=== PATIENT | male | born 1975 | race Caucasian/White ===

== ENCOUNTER 2016-11-01 10:51 | Inpatient (IN) | payer MEDICARE ==
[2016-11-01] VITALS (8 sets, daily range): BP systolic 128–161; BP diastolic 62–78; PULSE 55–75; RESP 16–20; TEMP 98–98.5; O2SAT 97–100
[~2016-11-01] VITALS: Ht 172.7 cm; Wt 68.2 kg
[~2016-11-01 10:51] MED LIST: ACCUTES19 SQ; BAYEKIT; BAYETES; BLOO1KIT65 SQ; GEMF600T PO; LANC1MIS62 SLOW IVP; LEVEMIR SQ; LURA40 PO; METH-737 PO; NORT25CA PO; PEN31MIS2
[2016-11-01] MEDS ORDERED: IOHEXOL 350 MG/ML 10 ML VIAL (for RAD DIAG) IVCONTRAST ONE (10:52)
[2016-11-01] MEDS ORDERED: SODIUM CHLOR 0.9% 1000 ML INJ 1,000 ML IV ONE ×2 (11:01→11:31)
[2016-11-01] MEDS ORDERED: SODIUM CHLORIDE 0.9% FLUSH 10 ML FLUSH IVF PRN (11:15)
[2016-11-01] MEDS ORDERED: SERO100T PO (11:16)
[2016-11-01] MEDS ORDERED: BUSP15TA PO (11:16)
[2016-11-01] MEDS ORDERED: HUMALOG SQ (11:16)
[2016-11-01 11:26] LABS: AUTOMATED NEUTROPHIL # 18.2 TH/MM3 (1.8-7.7); BASOPHIL # 0.1 TH/MM3 (0-0.2); BASOPHIL % 0.3 % (0.0-2.0); EOSINOPHIL % 0.1 % (0.0-4.0); HEMATOCRIT 48.6 % (39.0-51.0); HEMO FLAGS DIFF FINAL; LYMPH % 6.6 % (9.0-44.0); LYMPHOCYTE # 1.3 TH/MM3 (1.0-4.8); MEAN CELL VOLUME 88.2 FL (80.0-100.0); MEAN CORPUSCULAR HEMOGLOBIN 29.1 PG (27.0-34.0); MEAN CORPUSCULAR HGB CONC 33.1 % (32.0-36.0); MONO % 3.4 % (0.0-8.0); NEUT % 89.6 % (16.0-70.0); PLATELET COUNT 283 TH/MM3 (150-450); RED BLOOD COUNT 5.52 MIL/MM3 (4.50-5.90); RED CELL DISTRIBUTION WIDTH 12.6 % (11.6-17.2); WHITE BLOOD COUNT 20.3 TH/MM3 (4.0-11.0)
[2016-11-01 11:43] LABS: ANION GAP 19 MEQ/L (5-15); AST (GOT) 8 U/L (15-37); BICARBONATE 20.7 MEQ/L (21.0-32.0); BLOOD UREA NITROGEN 24 MG/DL (7-18); CHLORIDE 88 MEQ/L (98-107); GLOMERULAR FILTRATION RATE 80 ML/MIN (>89); POTASSIUM 3.4 MEQ/L (3.5-5.1); SODIUM (NA) 128 MEQ/L (136-145)
[2016-11-01 11:44] LABS: BLOOD GAS VENOUS BASE EXCESS -5.4 mmol/L (-2-2); BLOOD GAS VENOUS HCO3 20 mmol/L (22-26); BLOOD GAS VENOUS O2 CONTENT 11.1 Vol % (9.0-17.0); BLOOD GAS VENOUS O2 HGB SAT 49 % (70-76); BLOOD GAS VENOUS PCO2 38 mmHg (44-48); BLOOD GAS VENOUS PO2 29 mmHg (35-40); BLOOD GAS VENOUS pH 7.33 (7.360-7.400); TEMP CORR TO 98.6
[2016-11-01 11:45] LABS: CRITICAL VALUE YES; DRAW SITE RAC; FIO2 21 %; OXYGEN DEVICE RA; STAT YES
[2016-11-01 11:45] LABS: ALT (GPT) 15 U/L (12-78)
[2016-11-01 11:53] LABS: ALKALINE PHOSPHATASE 97 U/L (45-117); BETA-HYDROXYBUTYRATE 8.37 MMOL/L (0.00-0.39); TOTAL BILIRUBIN ADULT 0.9 MG/DL (0.2-1.0)
[2016-11-01 12:04] LABS: BLOOD, URINE NEG (NEG); COMMENT (UR) CULT NOT INDICATED; CULTURE IF INDICATED CULT NOT INDICATED; GLUCOSE,URINE 1000 mg/dL (NEG); KETONE, URINE 150 mg/dL (NEG); NITRITE,URINE NEG (NEG); URINE COLOR LIGHT-YELLOW (YELLW/STRAW)
[2016-11-01] MEDS ORDERED: INSULIN HUMAN REGULAR 1,000 UNITS/10 ML VIAL IV PUSH ONE (12:30)
[2016-11-01] MEDS: POTASSIUM CHLOR 20 MEQ PREMIX 100 ML IV SCH ×2 (12:54→14:59)
--- NOTE | 2016-11-01 13:00 | PD ---
HPI Chief Complaint: Abnormal Results Time Seen by Provider: 10:53 Travel History International Travel<30 days: No Contact w/Intl Traveler<30days: No Traveled to known affect area: No History of Present Illness HPI This is a 41-year-old male who has a history of diabetes who presents to the emergency department with nausea and vomiting that's been going on for 3-4 days , constant, moderate severity, associated with fatigue and lightheadedness. He denies any abdominal pain. He says he hasn't been taking his insulin for 2 weeks. He denies any fevers or chills. He denies any diarrhea. He says he does receive methadone 70 mg daily. PFSH Past Medical History Diabetes: Yes (TYPE 1 ) Patient Takes Glucophage: No Tetanus Vaccination: > 5 Years Social History Alcohol Use: No Tobacco Use: No Substance Use: No Allergies-Medications (Allergen,Severity, Reaction): Coded Allergies: penicillin G (Unverified Allergy, Severe, rash, 09/25/16) Reported Meds & Prescriptions Reported Meds & Active Scripts Active Danielito Contour Blood Glucose Strips (Blood Glucose Test Strips) 1 [place]uni [place]uni 50 Ea .ROUTE DAILY Danielito Contour Blood Gluco W/Device (Device) 1 Kit Kit 1 Kit .ROUTE DAILY Pen Bond 31G X 1/4" Sh 31G X 6 mm 1 Mis Mis 1 Ea .ROUTE DAILY Lancets 33G [place] Chu (Lancets) 1 Mis Mis Ea SLOW IVP DAILY Accu-Chek Leena Plus Test Strips #50 (Device) Strp Ea SQ DAILY Accu-Chek Leena Connect W/Device (Blood Glucose Monitoring Suppl) 1 Kit Kit Ea SQ DAILY Gemfibrozil 600 Mg Tab 600 Mg PO BID Reported Humalog Inj (Insulin Human Lispro) 1,000 Unit/10 Ml Vial 1-9 Units SQ ACHS Max dose at bedtime:( )units; sugars< 70,(0)units; sugars 150-199,(1)unit; sugars 200-249,(3)units; sugars 250-299,(5)units; sugars 300-349,(7)units; sugars more than 349,(9)units. Buspirone (Buspirone HCl) 15 Mg Tab 15 Mg PO BID Seroquel (Quetiapine Fumarate) 100 Mg Tab 100 Mg PO HS Levemir Inj (Insulin Detemir) 1,000 unit/ 10 ML Vial 15 Units SQ HS Do not mix with any other Insulin. Methadose (Methadone HCl) 40 Mg Tab 80 Mg PO DAILY Rx'ed by Methadone clinic Review of Systems Except as stated in HPI: all other systems reviewed are Neg Physical Exam Narrative GENERAL:Well appearing, no acute distress SKIN: Focused skin assessment warm and dry. HEAD: Atraumatic. Normocephalic. EYES: Pupils equal and round. No injection or drainage. ENT: Dry mucous membranes. NECK: Trachea midline. CARDIOVASCULAR: Regular rate and rhythm. No murmur appreciated. RESPIRATORY: Clear to auscultation. Breath sounds equal bilaterally. GASTROINTESTINAL: Abdomen soft, non-tender, nondistended. MUSCULOSKELETAL: No obvious deformities. NEUROLOGICAL: Awake and alert. No obvious cranial nerve deficits. Moving all extremities. PSYCHIATRIC: Appropriate mood and affect; insight and judgment normal. Data Data Last Documented VS Vital Signs Date Time Temp Pulse Resp B/P (MAP) Pulse Ox O2 Delivery O2 Flow Rate FiO2 11/01/16 15:17 58 18 159/67 (97) 98 Room Air 11/01/16 11:07 98.0 Orders Orders Complete Blood Count With Diff (11/01/16 11:01) Comprehensive Metabolic Panel (11/01/16 11:01) Beta Hydroxybutyrate (Acetone) (11/01/16 11:01) Urinalysis - C+S If Indicated (11/01/16 11:01) Blood Gas Venous (Vbg) (11/01/16 11:01) Ecg Monitoring (11/01/16 11:01) Iv Access Insert/Monitor (11/01/16 11:01) Oximetry (11/01/16 11:01) NPO (11/01/16 11:01) Sodium Chlor 0.9% 1000 Ml Inj (Ns 1000 M (11/01/16 11:01) Sodium Chlor 0.9% 1000 Ml Inj (Ns 1000 M (11/01/16 11:31) Ct Abd/Pel W Iv Contrast(Rout) (11/01/16 ) Insulin Human Regular Inj (Novolin R Inj (11/01/16 12:30) Potassium Chlor 20 Meq Premix (Kcl 20 Me (11/01/16 12:30) Lactic Acid Sepsis Protocol (11/01/16 13:00) Chest, Single Ap (11/01/16 ) Methadone Liq (Methadone Liq) (11/01/16 13:30) Iohexol 350 Inj (Omnipaque 350 Inj) (11/01/16 10:52) Blood Culture (11/01/16 15:25) Lipase (11/01/16 11:13) Buspirone (Buspar) (11/01/16 21:00) Insulin Detemir Inj (Levemir Inj) (11/01/16 21:00) Quetiapine (Seroquel) (11/01/16 21:00) (Nf) Methadone Hcl (Methadose) (11/02/16 09:00) Basic Metabolic Panel (Bmp) (11/01/16 20:00) Potassium Chlor 10 Meq Premix (Kcl 10 Me (11/01/16 18:00) Code Status (11/01/16 15:54) Vital Signs (Adult) Q4H (11/01/16 15:54) Activity Oob Ad Sofi (11/01/16 15:54) Bedside Glucose DANNY.CSUGAR (11/01/16 15:54) Handle Bender / Telemetry .CONTINUOUS (11/01/16 15:54) Intake + Output DANNY.QSHIFT (11/01/16 15:54) Notify Dr: Other (11/01/16 15:54) Sodium Chlor 0.9% 1000 Ml Inj (Ns 1000 M (11/01/16 18:00) Sodium Chloride 0.9% Flush (Ns Flush) (11/01/16 16:00) Sodium Chloride 0.9% Flush (Ns Flush) (11/01/16 21:00) Acetaminophen (Tylenol) (11/01/16 16:00) Ondansetron Inj (Zofran Inj) (11/01/16 16:00) Comprehensive Metabolic Panel (11/02/16 06:00) Complete Blood Count With Diff (11/02/16 06:00) Enoxaparin Inj (Lovenox Inj) (11/01/16 18:00) Naloxone Inj (Narcan Inj) (11/01/16 16:00) Docusate Sodium-Senna (Moni-Colace) (11/01/16 21:00) Magnesium Hydroxide Liq (Milk Of Magnesi (11/01/16 16:00) Sennosides (Senokot) (11/01/16 16:00) Bisacodyl Supp (Dulcolax Supp) (11/01/16 16:00) Lactulose Liq (Lactulose Liq) (11/01/16 16:00) Methadone (Dolophine) (11/02/16 14:00) Admit Order (Ed Use Only) (11/01/16 16:12) Labs Laboratory Tests Test 11/01/16 11:13 11/01/16 11:35 11/01/16 11:46 11/01/16 14:59 White Blood Count 20.3 TH/MM3 Red Blood Count 5.52 MIL/MM3 Hemoglobin 16.1 GM/DL Hematocrit 48.6 % Mean Corpuscular Volume 88.2 FL Mean Corpuscular Hemoglobin 29.1 PG Mean Corpuscular Hemoglobin Concent 33.1 % Red Cell Distribution Width 12.6 % Platelet Count 283 TH/MM3 Mean Platelet Volume 8.2 FL Neutrophils (%) (Auto) 89.6 % Lymphocytes (%) (Auto) 6.6 % Monocytes (%) (Auto) 3.4 % Eosinophils (%) (Auto) 0.1 % Basophils (%) (Auto) 0.3 % Neutrophils # (Auto) 18.2 TH/MM3 Lymphocytes # (Auto) 1.3 TH/MM3 Monocytes # (Auto) 0.7 TH/MM3 Eosinophils # (Auto) 0.0 TH/MM3 Basophils # (Auto) 0.1 TH/MM3 CBC Comment DIFF FINAL Differential Comment Blood Urea Nitrogen 24 MG/DL Creatinine 1.03 MG/DL Random Glucose 367 MG/DL Total Protein 7.6 GM/DL Albumin 3.9 GM/DL Calcium Level 9.4 MG/DL Alkaline Phosphatase 97 U/L Aspartate Amino Transf (AST/SGOT) 8 U/L Alanine Aminotransferase (ALT/SGPT) 15 U/L Total Bilirubin 0.9 MG/DL Sodium Level 128 MEQ/L Potassium Level 3.4 MEQ/L Chloride Level 88 MEQ/L Carbon Dioxide Level 20.7 MEQ/L Anion Gap 19 MEQ/L Estimat Glomerular Filtration Rate 80 ML/MIN Lipase 219 U/L B-Hydroxybutyrate 8.37 MMOL/L Blood Gas Puncture Site RAC Blood Gas Patient Temperature 98.6 Venous Blood pH 7.33 Venous Blood Partial Pressure CO2 38 mmHg Venous Blood Partial Pressure O2 29 mmHg Venous Blood HCO3 20 mmol/L Venous Blood Oxygen Saturation 49 % Venous Blood Oxygen Content 11.1 Vol % Venous Blood Base Excess -5.4 mmol/L Oxygen Delivery Device RA Blood Gas Inspired Oxygen 21 % Urine Color LIGHT-YELLOW Urine Turbidity CLEAR Urine pH 5.0 Urine Specific [place] 1.025 Urine Protein 30 mg/dL Urine Glucose (UA) 1000 mg/dL Urine Ketones 150 mg/dL Urine Occult Blood NEG Urine Nitrite NEG Urine Bilirubin NEG Urine Urobilinogen LESS THAN 2.0 MG/DL Urine Leukocyte Esterase NEG Urine WBC LESS THAN 1 /hpf Microscopic Urinalysis Comment CULT NOT INDICATED Urine Opiates Screen NEG Urine Barbiturates Screen NEG Urine Amphetamines Screen NEG Urine Benzodiazepines Screen NEG Urine Cocaine Screen POS Urine Cannabinoids Screen POS Lactic Acid Level 1.6 mmol/L MDM Medical Decision Making Medical Screen Exam Complete: Yes Emergency Medical Condition: Yes Interpretation(s) Leukocytosis 89% neutrophils Hyponatremia Hypokalemia Last 24 hours Impressions Chest X-Ray 11/01/16 0000 Signed Impressions: Service Date/Time: Tuesday, November 01, 2016 13:30 - CONCLUSION: No acute disease. Bryan Lafleur MD Abdomen/Pelvis CT 11/01/16 0000 Signed Impressions: Service Date/Time: Tuesday, November 01, 2016 14:08 - CONCLUSION: No acute intra-abdominal or pelvic process. Onur Patrick MD Differential Diagnosis DKA, gastroenteritis, gastritis, pancreatitis, cholecystitis Narrative Course This is a 41-year-old male who presents to the emergency department with vomiting and abdominal discomfort. He doesn't provide much history on arrival. Labs are obtained which demonstrate a leukocytosis of 20 with 89% neutrophils. Electrolytes demonstrate some moderate dehydration with an anion gap of 19 which I suspect is more in the setting of vomiting than true DKA. CT abdomen and pelvis was unremarkable. 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 My impression is that some of his vomiting may be related to his chronic methadone use. He is also seeing a protection analyst and being evaluated for possible gastroparesis. Given the patient's electrolyte abnormalities I think it's reasonable to observe him overnight for IV hydration and continued antiemetics. Physician Communication Physician Communication Discussed with Dr. Martínez Diagnosis Primary Impression: Vomiting Qualified Codes: R11.2 - Nausea with vomiting, unspecified Admitting Information Admitting Physician Requests: Observation Divina Galvez MD Nov 01, 2016 13:00
[2016-11-01] MEDS ORDERED: METHADONE HCL 10 MG/10 ML ORAL SOLUTION PO ONE (13:30)
--- NOTE | 2016-11-01 14:16 | RADRPT ---
EXAM DATE/TIME: 11/01/2016 13:30 [facility] COMPARISON: No previous studies available for comparison. INDICATIONS : Nausea, vomiting, fever. MEDICAL HISTORY : Diabetes mellitus type II. Smoker. SURGICAL HISTORY : None. ENCOUNTER: Initial ACUITY: 3 days PAIN SCORE: 0/10 LOCATION: Bilateral chest FINDINGS: A single view of the chest demonstrates the lungs to be symmetrically aerated without evidence of mas s, infiltrate or effusion. The cardiomediastinal contours are unremarkable. Osseous structures are intact. CONCLUSION: No acute disease. Bryan Lafleur MD on November 01, 2016 at 14:14 Board Certified Radiologist. This report was verified electronically.
--- NOTE | 2016-11-01 14:53 | RADRPT ---
EXAM DATE/TIME: 11/01/2016 14:08 [facility] COMPARISON: No previous studies available for comparison. INDICATIONS : Nausea and vomiting. IV CONTRAST: 95 cc Omnipaque 350 (iohexol) IV ORAL CONTRAST: No oral contrast ingested. RADIATION DOSE: 9.96 CTDIvol (mGy) MEDICAL HISTORY : Diabetes mellitus type 1. SURGICAL HISTORY : None. ENCOUNTER: Initial ACUITY: 4 - 6 days PAIN SCALE: 0/10 LOCATION: upper quadrant TECHNIQUE: Volumetric scanning of the abdomen and pelvis was performed. Using automated exposure control and ad justment of the mA and/or kV according to patient size, radiation dose was kept as low as reasonably achievable to obtain optimal diagnostic quality images. DICOM format image data is available electro nically for review and comparison. FINDINGS: LOWER LUNGS: The visualized lower lungs are clear. LIVER: Homogeneous density without lesion. There is no dilation of the biliary tree. No calcified gallston es. Gallbladder is normal structure without wall thickening. SPLEEN: Normal size without lesion. PANCREAS: Within normal limits. KIDNEYS: Normal in size and shape. There is no stone or hydronephrosis. 1.7 cm cyst posterior cortex of the r ight kidney mid pole and 1 cm of the lower pole. ADRENAL GLANDS: Within normal limits. VASCULAR: There is no aortic aneurysm. BOWEL/MESENTERY: The stomach, small bowel, and colon demonstrate no acute abnormality. There is no free intraperitone al air or fluid. Appendix visualized and is normal. Retrocardiac hiatal hernia. ABDOMINAL WALL: Within normal limits. RETROPERITONEUM: There is no lymphadenopathy. BLADDER: No wall thickening or mass. REPRODUCTIVE: Within normal limits. INGUINAL: There is no lymphadenopathy or hernia. MUSCULOSKELETAL: Within normal limits for patient age. CONCLUSION: No acute intra-abdominal or pelvic process. Onur Patrick MD on November 01, 2016 at 14:47 Board Certified Radiologist. This report was verified electronically.
[2016-11-01] MEDS ORDERED: BISACODYL 10 MG SUPP RECTAL PRN (16:00)
[2016-11-01] MEDS ORDERED: LACTULOSE SYRUP 20 GM/30 ML CUP PO PRN (16:00)
[2016-11-01] MEDS ORDERED: NALOXONE HCL 0.4 MG/ML AMP IV PUSH PRN (16:00)
[2016-11-01] MEDS ORDERED: MAGNESIUM HYDROXIDE SUSP 30 ML CUP PO PRN (16:00)
[2016-11-01] MEDS ORDERED: SENNOSIDES 8.6 MG TAB PO PRN (16:00)
[2016-11-01] MEDS ORDERED: ACETAMINOPHEN 325 MG TAB PO PRN (16:00)
[2016-11-01] MEDS ORDERED: SODIUM CHLORIDE 0.9% FLUSH 10 ML FLUSH IV FLUSH PRN (16:00)
--- NOTE | 2016-11-01 16:28 | HHI.HP ---
[facility] [place] [facility] [place] [facility] No Primary Care Physician Admission Diagnosis Diagnoses: Chief Complaint: Intractable Nausea and vomit Travel History International Travel<30 Days: No Contact w/Intl Traveler <30 Da: No Traveled to Known Affected Are: No History of Present Illness This is a pleasant 41 y/o male with Diabetes Mellitus Type I, who came to ER with his Mother and two Friends, with Nausea and vomit, not able to keep anything down for the last 3 to 4 days, he is not been compliant with his Medicines, not taking Methadone and his Insulin, associated with fatigue and lightheadedness. He denies any abdominal pain. He says he hasn't been taking his insulin for 2 weeks. He denies any fevers or chills. He denies any diarrhea. He says he does receive methadone 70 mg daily. given Methadone in ER by Doctor Lenny, at this time stable asking for food. as we know he has Chronic Pancreatitis at this time followed by GI specialist and Scheduled for EGD and Colonoscopy as outpatient but is been held due to that the patient is not taking his Insulin and is been Uncontrolled. also he has Hypertriglyceridemia. follow laboratory while he is here. Review of Systems Constitutional: DENIES: Fever, Chills, Change in appetite Endocrine: DENIES: Heat/cold intolerance Eyes: DENIES: Blurred vision, Eye pain Gastrointestinal: COMPLAINS OF: Nausea, Vomiting Except as stated in HPI: all other systems reviewed are Neg Past Family Social History Past Medical History Chronic Pancreatitis DM I Hypertriglyceridemia Severe Non compliance Methadone management by Pain medicine specialist. 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 Bryan Lafleur MD Abdomen/Pelvis CT 11/01/16 0000 Signed Impressions: Service Date/Time: Tuesday, November 01, 2016 14:08 - CONCLUSION: No acute intra-abdominal or pelvic process. Onur Patrick MD Allergies: Coded Allergies: penicillin G (Unverified Allergy, Severe, rash, 09/25/16) Active Ordered Medications Current Medications Medications (Trade) Dose Ordered Sig/Ofe Route Start Time Stop Time Status Last Admin (NS Flush) 2 ml UNSCH PRN IVF 11/01/16 11:15 Potassium Chloride 100 ml @ 50 mls/hr Q2H IV 11/01/16 12:30 11/01/16 16:29 11/01/16 14:59 (Buspar) 15 mg BID PO 11/01/16 21:00 UNV (SEROquel) 100 mg HS PO 11/01/16 21:00 UNV Potassium Chloride 100 ml @ 100 mls/hr ONCE ONCE IV 11/01/16 16:00 11/01/16 16:59 UNV Sodium Chloride 1,000 ml @ 100 mls/hr Q10H IV 11/01/16 15:54 UNV (NS Flush) 2 ml UNSCH PRN IV FLUSH 11/01/16 16:00 UNV (NS Flush) 2 ml BID IV FLUSH 11/01/16 21:00 UNV (Tylenol) 650 mg Q4H PRN PO 11/01/16 16:00 UNV (Zofran Inj) 4 mg Q6H PRN IVP 11/01/16 16:00 UNV (Lovenox Inj) 40 mg Q24H SQ 11/01/16 16:00 UNV (Narcan Inj) 0.4 mg UNSCH PRN IV PUSH 11/01/16 16:00 UNV (Moni-Colace) 1 tab BID PO 11/01/16 21:00 UNV (Milk Of Magnesia Liq) 30 ml Q12H PRN PO 11/01/16 16:00 UNV (Senokot) 17.2 mg Q12H PRN PO 11/01/16 16:00 UNV (Dulcolax Supp) 10 mg DAILY PRN RECTAL 11/01/16 16:00 UNV (Lactulose Liq) 30 ml DAILY PRN PO 11/01/16 16:00 UNV Non-Formulary Medication 70 mg DAILY PO 11/02/16 09:00 UNV Family History Father with Liver Cancer Social History Lives by himself for the last two weeks. Tobacco dependence Physical Exam Vital Signs Vital Signs Date Time Temp Pulse Resp B/P (MAP) Pulse Ox O2 Delivery O2 Flow Rate FiO2 11/01/16 15:17 58 18 159/67 (97) 98 Room Air 11/01/16 12:05 55 18 145/70 (95) 100 Room Air 11/01/16 11:07 18 100 Room Air 11/01/16 11:07 59 18 100 Room Air 11/01/16 11:07 98.0 59 18 161/78 (105) 100 Room Air 11/01/16 11:02 98.0 55 18 161/78 (105) 99 Physical Exam GENERAL:Well appearing, no acute distress SKIN: Focused skin assessment warm and dry. HEAD: Atraumatic. Normocephalic. EYES: Pupils equal and round. No injection or drainage. ENT: Dry mucous membranes. NECK: Trachea midline. CARDIOVASCULAR: Regular rate and rhythm. No murmur appreciated. RESPIRATORY: Clear to auscultation. Breath sounds equal bilaterally. GASTROINTESTINAL: Abdomen soft, non-tender, nondistended. MUSCULOSKELETAL: No obvious deformities. NEUROLOGICAL: Awake and alert. No obvious cranial nerve deficits. Moving all extremities. PSYCHIATRIC: Appropriate mood and affect; insight and judgment normal. Laboratory Laboratory Tests Test 11/01/16 11:13 11/01/16 11:35 11/01/16 11:46 11/01/16 14:59 White Blood Count 20.3 Red Blood Count 5.52 Hemoglobin 16.1 Hematocrit 48.6 Mean Corpuscular Volume 88.2 Mean Corpuscular Hemoglobin 29.1 Mean Corpuscular Hemoglobin Concent 33.1 Red Cell Distribution Width 12.6 Platelet Count 283 Mean Platelet Volume 8.2 Neutrophils (%) (Auto) 89.6 Lymphocytes (%) (Auto) 6.6 Monocytes (%) (Auto) 3.4 Eosinophils (%) (Auto) 0.1 Basophils (%) (Auto) 0.3 Neutrophils # (Auto) 18.2 Lymphocytes # (Auto) 1.3 Monocytes # (Auto) 0.7 Eosinophils # (Auto) 0.0 Basophils # (Auto) 0.1 CBC Comment DIFF FINAL Differential Comment Blood Urea Nitrogen 24 Creatinine 1.03 Random Glucose 367 Total Protein 7.6 Albumin 3.9 Calcium Level 9.4 Alkaline Phosphatase 97 Aspartate Amino Transf (AST/SGOT) 8 Alanine Aminotransferase (ALT/SGPT) 15 Total Bilirubin 0.9 Sodium Level 128 Potassium Level 3.4 Chloride Level 88 Carbon Dioxide Level 20.7 Anion Gap 19 Estimat Glomerular Filtration Rate 80 Lipase 219 B-Hydroxybutyrate 8.37 Blood Gas Puncture Site RAC Blood Gas Patient Temperature 98.6 Venous Blood pH 7.33 Venous Blood Partial Pressure CO2 38 Venous Blood Partial Pressure O2 29 Venous Blood HCO3 20 Venous Blood Oxygen Saturation 49 Venous Blood Oxygen Content 11.1 Venous Blood Base Excess -5.4 Oxygen Delivery Device RA Blood Gas Inspired Oxygen 21 Urine Color LIGHT-YELLOW Urine Turbidity CLEAR Urine pH 5.0 Urine Specific [place] 1.025 Urine Protein 30 Urine Glucose (UA) 1000 Urine Ketones 150 Urine Occult Blood NEG Urine Nitrite NEG Urine Bilirubin NEG Urine Urobilinogen LESS THAN 2.0 Urine Leukocyte Esterase NEG Urine WBC LESS THAN 1 Microscopic Urinalysis Comment CULT NOT INDICATED Lactic Acid Level 1.6 Date/Time Source Procedure Growth Status 11/01/16 15:35 Blood Peripheral Aerobic Blood Culture Pending Received 11/01/16 15:35 Blood Peripheral Anaerobic Blood Culture Pending Received Result Diagram: 11/01/16 1113 11/01/16 1113 Imaging Last Impressions Chest X-Ray 11/01/16 0000 Signed Impressions: Service Date/Time: Tuesday, November 01, 2016 13:30 - CONCLUSION: No acute disease. Bryan Lafleur MD Abdomen/Pelvis CT 11/01/16 0000 Signed Impressions: Service Date/Time: Tuesday, November 01, 2016 14:08 - CONCLUSION: No acute intra-abdominal or pelvic process. MD Emiliano Chandra VTE Risk Assessment Caprini VTE Risk Assessment: Mod/High Risk (score >= 2) Caprini Risk Assessment Model Point Value = 1 Point Value = 2 Point Value = 3 Point Value = 5 Age 41-60 Minor surgery BMI > 25 kg/m2 Swollen legs Varicose veins or History of unexplained or recurrent spontaneous Oral contraceptives or hormone replacement Sepsis (< 1 month) Serious lung disease, including pneumonia (< 1 month) Abnormal pulmonary function Acute myocardial infarction Congestive heart failure (< 1 month) History of inflammatory bowel disease Medical patient at bed rest Age 61-74 Arthroscopic surgery Major open surgery (> 45 min) Laparoscopic surgery (> 45 min) Malignancy Confined to bed (> 72 hours) Immobilizing plaster cast Central venous access Age >= 75 History of VTE Family history of VTE Factor V Leiden Prothrombin [id number] Lupus anticoagulant Anticardiolipin antibodies Elevated serum homocysteine Heparin-induced thrombocytopenia Other congenital or acquired thrombophilia Stroke (< 1 month) Elective arthroplasty Hip, pelvis, or leg fracture Acute spinal cord injury (< 1 month) Prophylaxis Regimen Total Risk Factor Score Risk Level Prophylaxis Regimen 0-1 Low Early ambulation 2 Moderate Order ONE of the following: *Sequential Compression Device (SCD) *Heparin 5000 units SQ BID 3-4 Higher Order ONE of the following medications: *Heparin 5000 units SQ TID *Enoxaparin/Lovenox 40 mg SQ daily (WT < 150 kg, CrCl > 30 mL/min) *Enoxaparin/Lovenox 30 mg SQ daily (WT < 150 kg, CrCl > 10-29 mL/min) *Enoxaparin/Lovenox 30 mg SQ BID (WT < 150 kg, CrCl > 30 mL/min) AND/OR *Sequential Compression Device (SCD) 5 or more Highest Order ONE of the following medications: *Heparin 5000 units SQ TID (Preferred with Epidurals) *Enoxaparin/Lovenox 40 mg SQ daily (WT < 150 kg, CrCl > 30 mL/min) *Enoxaparin/Lovenox 30 mg SQ daily (WT < 150 kg, CrCl > 10-29 mL/min) *Enoxaparin/Lovenox 30 mg SQ BID (WT < 150 kg, CrCl > 30 mL/min) AND *Sequential Compression Device (SCD) Assessment and Plan Assessment and Plan 1. Intractable Nausea and vomit, probable related to his Metabolic disease, I agree with Doctor Lenny may continue with IV fluids Hydrate and try to handle off Intensive care unit, due to that his Anion Gap has Mild elevation will follow new BMP at 2000 today and if continue elevated will need probable Insulin drip, at this time stable asking for food. He has Metabolic acidosis and Mild DKA. 2. Chronic Pancreatitis and Suprarenal Cyst followed by GI specialist as outpatient may need specialized consult depend of clinical course 3. DM I at this time in Mild DKA will try to normalize his Anion Gap with IV fluids and Insulin 4. Chronic Pancreatitis at the moment stable 5. Hypertriglyceridemia at this time on hold his medicines will follow 6. Severe non compliance will need more compromise with his management 7. Methadone management by Pain medicine specialist 8. Tobacco dependence accepted Nicotine replacement DVT prophylaxis with Lovenox GI prophylaxis with PPIs Code Status full Code Discussed Condition With Divina Galvez MD Patient and his relatives in the room, all questions answered to the best of my abilities. Simone Bernabe MD Nov 01, 2016 16:28
[2016-11-01] MEDS ORDERED: POTASSIUM CHLOR 10 MEQ PREMIX 100 ML IV ONE (18:00)
[2016-11-01] MEDS: ENOXAPARIN SODIUM 40 MG/0.4 ML SYRINGE SQ SCH (18:00)
[2016-11-01] MEDS: NICOTINE 21 MG/24 HR PATCH T-DERMAL SCH (18:00)
[2016-11-01] MEDS: PANTOPRAZOLE SODIUM 40 MG VIAL IV PUSH SCH (18:28)
[2016-11-01] MEDS: SODIUM CHLOR 0.9% 1000 ML INJ 1,000 ML IV SCH ×2 (18:28→22:38)
[2016-11-01] MEDS: SUCRALFATE 1 GM TAB PO SCH ×2 (18:45→22:37)
[2016-11-01] MEDS: ONDANSETRON HCL 4 MG/2 ML VIAL IVP PRN (18:46)
[2016-11-01] MEDS: SODIUM CHLORIDE 0.9% FLUSH 10 ML FLUSH IV FLUSH SCH (21:00)
[2016-11-01] MEDS ORDERED: INSULIN DETEMIR 100 UNITS/ML VIAL SQ SCH (21:00)
[2016-11-01] MEDS: INSULIN DETEMIR 100 UNITS/ML VIAL SQ SCH (21:00)
[2016-11-01 21:25] LABS: ANION GAP 12 MEQ/L (5-15); BICARBONATE 19.7 MEQ/L (21.0-32.0); BLOOD UREA NITROGEN 17 MG/DL (7-18); CHLORIDE 99 MEQ/L (98-107); GLOMERULAR FILTRATION RATE 111 ML/MIN (>89); POTASSIUM 4.5 MEQ/L (3.5-5.1); SODIUM (NA) 131 MEQ/L (136-145)
[2016-11-01 21:54] LABS: HDL CHOLESTEROL 30.7 MG/DL (40.0-60.0); LDL CHOLESTEROL 160 MG/DL (0-99)
[2016-11-01 21:59] LABS: HEMOGLOBIN A1a 1.5 %; HEMOGLOBIN A1b 1.2 %; HEMOGLOBIN Ao 72.4 %; HEMOGLOBIN F 2.2 %; HEMOGLOBIN P3 5.2 %
[2016-11-01] MEDS: QUEtiapine FUMARATE 100 MG TAB PO SCH (22:36)
[2016-11-01] MEDS: DOCUSATE SODIUM 50 MG/SENNA 8.6 MG TAB PO SCH (22:37)
[2016-11-01] MEDS: busPIRone HCL 5 MG TAB PO SCH (22:37)
[2016-11-02] MEDS: ONDANSETRON HCL 4 MG/2 ML VIAL IVP PRN ×2 (03:51→12:23)
[2016-11-02 04:00] VITALS: BP 132/70; PULSE 67; RESP 18; TEMP 97; O2SAT 97
[2016-11-02] MEDS: PANTOPRAZOLE SODIUM 40 MG VIAL IV PUSH SCH ×2 (05:16→18:09)
[2016-11-02] MEDS: SUCRALFATE 1 GM TAB PO SCH (05:16)
[2016-11-02] MEDS: SODIUM CHLORIDE 0.9% FLUSH 10 ML FLUSH IV FLUSH SCH ×2 (08:08→20:47)
[2016-11-02] MEDS: busPIRone HCL 5 MG TAB PO SCH ×2 (08:08→20:47)
[2016-11-02] MEDS: SODIUM CHLOR 0.9% 1000 ML INJ 1,000 ML IV SCH ×3 (08:08→22:22)
[2016-11-02] MEDS: DOCUSATE SODIUM 50 MG/SENNA 8.6 MG TAB PO SCH ×2 (08:08→21:00)
[2016-11-02] MEDS: NICOTINE 21 MG/24 HR PATCH T-DERMAL SCH ×2 (08:11→15:07)
[2016-11-02] MEDS: REMOVE OLD PATCH T-DERMAL SCH (08:12)
[2016-11-02 08:23] LABS: AUTOMATED NEUTROPHIL # 10.8 TH/MM3 (1.8-7.7); BASOPHIL % 0.2 % (0.0-2.0); EOSINOPHIL # 0.1 TH/MM3 (0-0.4); EOSINOPHIL % 0.3 % (0.0-4.0); HEMO FLAGS DIFF FINAL; LYMPH % 17.4 % (9.0-44.0); LYMPHOCYTE # 2.5 TH/MM3 (1.0-4.8); MEAN CELL VOLUME 88.7 FL (80.0-100.0); MEAN CORPUSCULAR HGB CONC 33.9 % (32.0-36.0); MONO % 6.7 % (0.0-8.0); NEUT % 75.4 % (16.0-70.0); PLATELET COUNT 200 TH/MM3 (150-450); RED BLOOD COUNT 4.97 MIL/MM3 (4.50-5.90); RED CELL DISTRIBUTION WIDTH 12.9 % (11.6-17.2); WHITE BLOOD COUNT 14.4 TH/MM3 (4.0-11.0)
[2016-11-02 08:30] VITALS: BP 138/60; PULSE 60; RESP 18; TEMP 97.8; O2SAT 96
[2016-11-02 08:53] LABS: ALKALINE PHOSPHATASE 79 U/L (45-117); ALT (GPT) 9 U/L (12-78); ANION GAP 13 MEQ/L (5-15); AST (GOT) 7 U/L (15-37); BLOOD UREA NITROGEN 17 MG/DL (7-18); CHLORIDE 101 MEQ/L (98-107); GLOMERULAR FILTRATION RATE 104 ML/MIN (>89); POTASSIUM 3.7 MEQ/L (3.5-5.1); SODIUM (NA) 132 MEQ/L (136-145); TOTAL BILIRUBIN ADULT 0.8 MG/DL (0.2-1.0)
[2016-11-02] MEDS ORDERED: METHADONE HCL 80 MG PO SCH (09:00)
--- NOTE | 2016-11-02 11:05 | HHI.PR ---
Subjective Remarks This is a pleasant 41 y/o male with Diabetes Mellitus Type I, who came to ER with his Mother and two Friends, with Nausea and vomit, not able to keep anything down for the last 3 to 4 days, he is not been compliant with his Medicines, not taking Methadone and his Insulin, associated with fatigue and lightheadedness. He denies any abdominal pain. He says he hasn't been taking his insulin for 2 weeks. He denies any fevers or chills. He denies any diarrhea. He says he does receive methadone 70 mg daily. given Methadone in ER by Doctor Galvez, at this time stable asking for food. as we know he has Chronic Pancreatitis at this time followed by GI specialist and Scheduled for EGD and Colonoscopy as outpatient but is been held due to that the patient is not taking his Insulin and is been Uncontrolled. also he has Hypertriglyceridemia. follow laboratory while he is here. 11/02: Stable seen in his bedroom, continue with nausea, no vomit or diarrhea. Objective Vital Signs Date Time Temp Pulse Resp B/P (MAP) Pulse Ox O2 Delivery O2 Flow Rate FiO2 11/02/16 08:30 97.8 60 18 138/60 (86) 96 11/02/16 04:00 97.0 67 18 132/70 (90) 97 11/01/16 23:29 98.0 75 17 130/72 (91) 97 11/01/16 21:45 98.5 65 20 150/70 (96) 97 11/01/16 20:00 18 11/01/16 17:18 11/01/16 17:07 98.3 56 16 154/70 (98) 97 11/01/16 16:32 68 18 128/62 (84) 99 Room Air 11/01/16 15:17 58 18 159/67 (97) 98 Room Air 11/01/16 12:05 55 18 145/70 (95) 100 Room Air 11/01/16 11:07 18 100 Room Air 11/01/16 11:07 59 18 100 Room Air 11/01/16 11:07 98.0 59 18 161/78 (105) 100 Room Air I/O 11/01/16 11/01/16 11/01/16 11/02/16 11/02/16 11/02/16 07:00 15:00 23:00 07:00 15:00 23:00 Intake Total 990 ml 1300 ml 1000 ml Output Total 750 ml Balance 990 ml 550 ml 1000 ml Intake Oral 100 ml IV Total 990 ml 1200 ml 1000 ml Output Urine Total 750 ml Result Diagram: 11/02/16 0711 11/02/16 0711 Imaging Last Impressions Chest X-Ray 11/01/16 0000 Signed Impressions: Service Date/Time: Tuesday, November 01, 2016 13:30 - CONCLUSION: No acute disease. Bryan Lafleur MD Abdomen/Pelvis CT 11/01/16 0000 Signed Impressions: Service Date/Time: Tuesday, November 01, 2016 14:08 - CONCLUSION: No acute intra-abdominal or pelvic process. Onur Patrick MD Procedures None Other Results Laboratory Tests Test 11/01/16 11:13 11/01/16 11:35 11/01/16 11:46 11/01/16 14:59 Lipase 219 U/L B-Hydroxybutyrate 8.37 MMOL/L Blood Gas Puncture Site RAC Blood Gas Patient Temperature 98.6 Venous Blood pH 7.33 Venous Blood Partial Pressure CO2 38 mmHg Venous Blood Partial Pressure O2 29 mmHg Venous Blood HCO3 20 mmol/L Venous Blood Oxygen Saturation 49 % Venous Blood Oxygen Content 11.1 Vol % Venous Blood Base Excess -5.4 mmol/L Oxygen Delivery Device RA Blood Gas Inspired Oxygen 21 % Urine Color LIGHT-YELLOW Urine Turbidity CLEAR Urine pH 5.0 Urine Specific [place] 1.025 Urine Protein 30 mg/dL Urine Glucose (UA) 1000 mg/dL Urine Ketones 150 mg/dL Urine Occult Blood NEG Urine Nitrite NEG Urine Bilirubin NEG Urine Urobilinogen LESS THAN 2.0 MG/DL Urine Leukocyte Esterase NEG Urine WBC LESS THAN 1 /hpf Microscopic Urinalysis Comment CULT NOT INDICATED Urine Opiates Screen NEG Urine Barbiturates Screen NEG Urine Amphetamines Screen NEG Urine Benzodiazepines Screen NEG Urine Cocaine Screen POS Urine Cannabinoids Screen POS Lactic Acid Level 1.6 mmol/L Test 11/01/16 20:45 11/02/16 07:11 Hemoglobin A1c 14.5 % Triglycerides Level 189 MG/DL Cholesterol Level 228 MG/DL LDL Cholesterol 160 MG/DL HDL Cholesterol 30.7 MG/DL Cholesterol/HDL Ratio 7.42 RATIO Thyroid Stimulating Hormone 3rd Gen 0.219 uIU/ML White Blood Count 14.4 TH/MM3 Red Blood Count 4.97 MIL/MM3 Hemoglobin 14.9 GM/DL Hematocrit 44.0 % Mean Corpuscular Volume 88.7 FL Mean Corpuscular Hemoglobin 30.0 PG Mean Corpuscular Hemoglobin Concent 33.9 % Red Cell Distribution Width 12.9 % Platelet Count 200 TH/MM3 Mean Platelet Volume 8.3 FL Neutrophils (%) (Auto) 75.4 % Lymphocytes (%) (Auto) 17.4 % Monocytes (%) (Auto) 6.7 % Eosinophils (%) (Auto) 0.3 % Basophils (%) (Auto) 0.2 % Neutrophils # (Auto) 10.8 TH/MM3 Lymphocytes # (Auto) 2.5 TH/MM3 Monocytes # (Auto) 1.0 TH/MM3 Eosinophils # (Auto) 0.1 TH/MM3 Basophils # (Auto) 0.0 TH/MM3 CBC Comment DIFF FINAL Differential Comment Blood Urea Nitrogen 17 MG/DL Creatinine 0.82 MG/DL Random Glucose 237 MG/DL Total Protein 6.5 GM/DL Albumin 3.1 GM/DL Calcium Level 8.3 MG/DL Alkaline Phosphatase 79 U/L Aspartate Amino Transf (AST/SGOT) 7 U/L Alanine Aminotransferase (ALT/SGPT) 9 U/L Total Bilirubin 0.8 MG/DL Sodium Level 132 MEQ/L Potassium Level 3.7 MEQ/L Chloride Level 101 MEQ/L Carbon Dioxide Level 18.0 MEQ/L Anion Gap 13 MEQ/L Estimat Glomerular Filtration Rate 104 ML/MIN Objective Remarks GENERAL:Well appearing, no acute distress SKIN: Focused skin assessment warm and dry. HEAD: Atraumatic. Normocephalic. EYES: Pupils equal and round. No injection or drainage. ENT: Dry mucous membranes. NECK: Trachea midline. CARDIOVASCULAR: Regular rate and rhythm. No murmur appreciated. RESPIRATORY: Clear to auscultation. Breath sounds equal bilaterally. GASTROINTESTINAL: Abdomen soft, non-tender, nondistended. MUSCULOSKELETAL: No obvious deformities. NEUROLOGICAL: Awake and alert. No obvious cranial nerve deficits. Moving all extremities. PSYCHIATRIC: Appropriate mood and affect; insight and judgment normal. Medications and IVs Current Medications Medications (Trade) Dose Ordered Sig/Ofe Route Start Time Stop Time Status Last Admin (Buspar) 15 mg BID PO 11/01/16 21:00 11/02/16 08:08 (SEROquel) 100 mg HS PO 11/01/16 21:00 11/01/16 22:36 Sodium Chloride 1,000 ml @ 150 mls/hr Q6H40M IV 11/01/16 18:00 11/02/16 08:08 (NS Flush) 2 ml UNSCH PRN IV FLUSH 11/01/16 16:00 (NS Flush) 2 ml BID IV FLUSH 11/01/16 21:00 (Tylenol) 650 mg Q4H PRN PO 11/01/16 16:00 (Zofran Inj) 4 mg Q6H PRN IVP 11/01/16 16:00 11/02/16 03:51 (Lovenox Inj) 40 mg Q24H SQ 11/01/16 18:00 (Narcan Inj) 0.4 mg UNSCH PRN IV PUSH 11/01/16 16:00 (Moni-Colace) 1 tab BID PO 11/01/16 21:00 11/01/16 22:37 (Milk Of Magnesia Liq) 30 ml Q12H PRN PO 11/01/16 16:00 (Senokot) 17.2 mg Q12H PRN PO 11/01/16 16:00 (Dulcolax Supp) 10 mg DAILY PRN RECTAL 11/01/16 16:00 (Lactulose Liq) 30 ml DAILY PRN PO 11/01/16 16:00 (Dolophine) 70 mg DAILY@1400 PO 11/02/16 14:00 (Levemir Inj) 15 units HS SQ 11/01/16 21:00 (Habitrol 21 Mg Patch.24 Hr) 1 patch DAILY T-DERMAL 11/01/16 18:00 Miscellaneous Information 1 DAILY T-DERMAL 11/02/16 09:00 (Protonix Inj) 40 mg Q12H IV PUSH 11/01/16 18:00 11/02/16 05:16 (Carafate Liq) 1 gm ACHS PO 11/02/16 12:00 A/P Assessment and Plan 1. Intractable Nausea and vomit, probable related to his Metabolic disease, I agree with Doctor Lenny may continue with IV fluids Hydrate and try to handle off Intensive care unit, due to that his Anion Gap has Mild elevation will follow Improved his Anion Gap, continue Carafate, Protonix and Reglan. 2. Chronic Pancreatitis and Suprarenal Cyst followed by GI specialist as outpatient may need specialized consult depend of clinical course his Lipase 219 3. DM I at this time in Mild DKA will try to normalize his Anion Gap improved. 8. Tobacco dependence accepted Nicotine replacement 5. Hypertriglyceridemia at this time on hold his medicines will follow 6. Severe non compliance will need more compromise with his management 7. Methadone management by Pain medicine specialist 8. Polysubstance abuse, positive Drug screen to Cocaine and Marijuana strongly recommended to stop behavior. DVT prophylaxis with Lovenox GI prophylaxis with PPIs Code Status full Code Discussed Condition With Patient and nurse, all questions answered to the best of my abilities. Discharge Planning Expected in am tomorrow. Simone Bernabe MD Nov 02, 2016 11:05
[2016-11-02] MEDS ORDERED: POTASSIUM CHLORIDE 20 MEQ CONTROLLED RELEASE TAB PO ONE (11:15)
[2016-11-02] MEDS ORDERED: INSULIN DETEMIR 100 UNITS/ML VIAL SQ ONE (11:15)
[2016-11-02] MEDS: INSULIN NovoLIN REGULAR SUPPLEMENTAL SCALE SQ SCH ×3 (12:00→20:52)
[2016-11-02 12:15] VITALS: BP 140/78; PULSE 50; RESP 20; TEMP 96.8; O2SAT 96
[2016-11-02] MEDS: SUCRALFATE 1 GM/10 ML CUP PO SCH ×3 (12:23→21:00)
[2016-11-02] MEDS: METHADONE HCL 10 MG TAB PO SCH (13:51)
[2016-11-02] MEDS: METOCLOPRAMIDE HCL 10 MG/2 ML VIAL IV PUSH SCH ×2 (15:05→20:57)
[2016-11-02] MEDS: ENOXAPARIN SODIUM 40 MG/0.4 ML SYRINGE SQ SCH (18:00)
[2016-11-02 19:57] VITALS: BP 119/65; PULSE 69; RESP 18; TEMP 98.2; O2SAT 97
[2016-11-02] MEDS: QUEtiapine FUMARATE 100 MG TAB PO SCH (20:46)
[2016-11-02] MEDS: INSULIN DETEMIR 100 UNITS/ML VIAL SQ SCH (20:49)
[2016-11-02 21:58] VITALS: BP 167/83; PULSE 47; RESP 18; TEMP 98.4; O2SAT 99
[2016-11-02 23:50] VITALS: BP 99/59; PULSE 57; RESP 18; TEMP 98; O2SAT 97
[2016-11-03 03:30] VITALS: BP 125/74; PULSE 52; RESP 18; TEMP 98.8; O2SAT 98
[2016-11-03] MEDS: PANTOPRAZOLE SODIUM 40 MG VIAL IV PUSH SCH (05:48)
[2016-11-03] MEDS: SODIUM CHLOR 0.9% 1000 ML INJ 1,000 ML IV SCH ×2 (05:48→10:00)
[2016-11-03] MEDS: METOCLOPRAMIDE HCL 10 MG/2 ML VIAL IV PUSH SCH ×2 (05:49→14:37)
[2016-11-03 08:00] VITALS: BP 152/81; PULSE 56; RESP 16; TEMP 98; O2SAT 97
[2016-11-03] MEDS: INSULIN NovoLIN REGULAR SUPPLEMENTAL SCALE SQ SCH ×2 (08:00→12:00)
--- NOTE | 2016-11-03 08:44 | HHI.PR ---
Subjective Remarks This is a pleasant 41 y/o male with Diabetes Mellitus Type I, who came to ER with his Mother and two Friends, with Nausea and vomit, not able to keep anything down for the last 3 to 4 days, he is not been compliant with his Medicines, not taking Methadone and his Insulin, associated with fatigue and lightheadedness. He denies any abdominal pain. He says he hasn't been taking his insulin for 2 weeks. He denies any fevers or chills. He denies any diarrhea. He says he does receive methadone 70 mg daily. given Methadone in ER by Doctor Lenny, at this time stable asking for food. as we know he has Chronic Pancreatitis at this time followed by GI specialist and Scheduled for EGD and Colonoscopy as outpatient but is been held due to that the patient is not taking his Insulin and is been Uncontrolled. also he has Hypertriglyceridemia. follow laboratory while he is here. 11/02: Stable seen in his bedroom, continue with nausea, 11/03: Patient seen in his bedroom, improving condition, discussed with him for a long time more than 25 minutes only spent talking with the patient he is completely non compliant with his diabetes, also he is abusing substances, and he states his relatives do not know about that, of course won't disclose this information to his relatives, he is supposed to be on Methadone by his Pain medicine specialist, he states will be more compliant with his Diabetes, also will try to avoid Tobacco, marijuana and Cocaine. No nausea, vomit or diarrhea. Objective Vital Signs Date Time Temp Pulse Resp B/P (MAP) Pulse Ox O2 Delivery O2 Flow Rate FiO2 11/03/16 03:30 98.8 52 18 125/74 (91) 98 11/03/16 02:25 Room Air 11/02/16 23:50 98.0 57 18 99/59 (72) 97 11/02/16 21:58 98.4 47 18 167/83 (111) 99 11/02/16 19:57 98.2 69 18 119/65 (83) 97 11/02/16 18:35 22 11/02/16 12:15 96.8 50 20 140/78 (98) 96 I/O 11/02/16 11/02/16 11/02/16 11/03/16 11/03/16 11/03/16 06:59 14:59 22:59 06:59 14:59 22:59 Intake Total 1000 ml 1000 ml 120 ml Balance 1000 ml 1000 ml 120 ml Intake Oral 120 ml IV Total 1000 ml 1000 ml # Voids 1 1 # Bowel Movements 0 Result Diagram: 11/02/16 0711 11/02/16 0711 Imaging Last Impressions Chest X-Ray 11/01/16 0000 Signed Impressions: Service Date/Time: Tuesday, November 01, 2016 13:30 - CONCLUSION: No acute disease. Bryan Lafleur MD Abdomen/Pelvis CT 11/01/16 0000 Signed Impressions: Service Date/Time: Tuesday, November 01, 2016 14:08 - CONCLUSION: No acute intra-abdominal or pelvic process. Onur Patrick MD Procedures None Other Results Laboratory Tests Test 11/01/16 11:13 11/01/16 11:35 11/01/16 11:46 11/01/16 14:59 Lipase 219 U/L B-Hydroxybutyrate 8.37 MMOL/L Blood Gas Puncture Site RAC Blood Gas Patient Temperature 98.6 Venous Blood pH 7.33 Venous Blood Partial Pressure CO2 38 mmHg Venous Blood Partial Pressure O2 29 mmHg Venous Blood HCO3 20 mmol/L Venous Blood Oxygen Saturation 49 % Venous Blood Oxygen Content 11.1 Vol % Venous Blood Base Excess -5.4 mmol/L Oxygen Delivery Device RA Blood Gas Inspired Oxygen 21 % Urine Color LIGHT-YELLOW Urine Turbidity CLEAR Urine pH 5.0 Urine Specific [place] 1.025 Urine Protein 30 mg/dL Urine Glucose (UA) 1000 mg/dL Urine Ketones 150 mg/dL Urine Occult Blood NEG Urine Nitrite NEG Urine Bilirubin NEG Urine Urobilinogen LESS THAN 2.0 MG/DL Urine Leukocyte Esterase NEG Urine WBC LESS THAN 1 /hpf Microscopic Urinalysis Comment CULT NOT INDICATED Urine Opiates Screen NEG Urine Barbiturates Screen NEG Urine Amphetamines Screen NEG Urine Benzodiazepines Screen NEG Urine Cocaine Screen POS Urine Cannabinoids Screen POS Lactic Acid Level 1.6 mmol/L Test 11/01/16 20:45 11/02/16 07:11 Hemoglobin A1c 14.5 % Triglycerides Level 189 MG/DL Cholesterol Level 228 MG/DL LDL Cholesterol 160 MG/DL HDL Cholesterol 30.7 MG/DL Cholesterol/HDL Ratio 7.42 RATIO Thyroid Stimulating Hormone 3rd Gen 0.219 uIU/ML White Blood Count 14.4 TH/MM3 Red Blood Count 4.97 MIL/MM3 Hemoglobin 14.9 GM/DL Hematocrit 44.0 % Mean Corpuscular Volume 88.7 FL Mean Corpuscular Hemoglobin 30.0 PG Mean Corpuscular Hemoglobin Concent 33.9 % Red Cell Distribution Width 12.9 % Platelet Count 200 TH/MM3 Mean Platelet Volume 8.3 FL Neutrophils (%) (Auto) 75.4 % Lymphocytes (%) (Auto) 17.4 % Monocytes (%) (Auto) 6.7 % Eosinophils (%) (Auto) 0.3 % Basophils (%) (Auto) 0.2 % Neutrophils # (Auto) 10.8 TH/MM3 Lymphocytes # (Auto) 2.5 TH/MM3 Monocytes # (Auto) 1.0 TH/MM3 Eosinophils # (Auto) 0.1 TH/MM3 Basophils # (Auto) 0.0 TH/MM3 CBC Comment DIFF FINAL Differential Comment Blood Urea Nitrogen 17 MG/DL Creatinine 0.82 MG/DL Random Glucose 237 MG/DL Total Protein 6.5 GM/DL Albumin 3.1 GM/DL Calcium Level 8.3 MG/DL Alkaline Phosphatase 79 U/L Aspartate Amino Transf (AST/SGOT) 7 U/L Alanine Aminotransferase (ALT/SGPT) 9 U/L Total Bilirubin 0.8 MG/DL Sodium Level 132 MEQ/L Potassium Level 3.7 MEQ/L Chloride Level 101 MEQ/L Carbon Dioxide Level 18.0 MEQ/L Anion Gap 13 MEQ/L Estimat Glomerular Filtration Rate 104 ML/MIN Objective Remarks GENERAL:Well appearing, no acute distress SKIN: Focused skin assessment warm and dry. HEAD: Atraumatic. Normocephalic. EYES: Pupils equal and round. No injection or drainage. ENT: Dry mucous membranes. NECK: Trachea midline. CARDIOVASCULAR: Regular rate and rhythm. No murmur appreciated. RESPIRATORY: Clear to auscultation. Breath sounds equal bilaterally. GASTROINTESTINAL: Abdomen soft, non-tender, nondistended. MUSCULOSKELETAL: No obvious deformities. NEUROLOGICAL: Awake and alert. No obvious cranial nerve deficits. Moving all extremities. PSYCHIATRIC: Appropriate mood and affect; insight and judgment normal. Medications and IVs Current Medications Medications (Trade) Dose Ordered Sig/Ofe Route Start Time Stop Time Status Last Admin (Buspar) 15 mg BID PO 11/01/16 21:00 11/02/16 20:47 (SEROquel) 100 mg HS PO 11/01/16 21:00 11/02/16 20:46 Sodium Chloride 1,000 ml @ 150 mls/hr Q6H40M IV 11/01/16 18:00 11/03/16 05:48 (NS Flush) 2 ml UNSCH PRN IV FLUSH 11/01/16 16:00 (NS Flush) 2 ml BID IV FLUSH 11/01/16 21:00 11/02/16 20:47 (Tylenol) 650 mg Q4H PRN PO 11/01/16 16:00 (Zofran Inj) 4 mg Q6H PRN IVP 11/01/16 16:00 11/02/16 12:23 (Lovenox Inj) 40 mg Q24H SQ 11/01/16 18:00 (Narcan Inj) 0.4 mg UNSCH PRN IV PUSH 11/01/16 16:00 (Moni-Colace) 1 tab BID PO 11/01/16 21:00 11/01/16 22:37 (Milk Of Magnesia Liq) 30 ml Q12H PRN PO 11/01/16 16:00 (Senokot) 17.2 mg Q12H PRN PO 11/01/16 16:00 (Dulcolax Supp) 10 mg DAILY PRN RECTAL 11/01/16 16:00 (Lactulose Liq) 30 ml DAILY PRN PO 11/01/16 16:00 (Dolophine) 70 mg DAILY@1400 PO 11/02/16 14:00 11/02/16 13:51 (Levemir Inj) 15 units HS SQ 11/01/16 21:00 11/02/16 20:49 (Habitrol 21 Mg Patch.24 Hr) 1 patch DAILY T-DERMAL 11/01/16 18:00 11/02/16 15:07 Miscellaneous Information 1 DAILY T-DERMAL 11/02/16 09:00 (Protonix Inj) 40 mg Q12H IV PUSH 11/01/16 18:00 11/03/16 05:48 (Carafate Liq) 1 gm ACHS PO 11/02/16 12:00 11/02/16 18:06 (NovoLIN R SUPPLEMENTAL SCALE) 1 ACHS SLIDING SCALE SQ 11/02/16 12:00 11/02/16 20:52 (Reglan Inj) 5 mg Q8HR IV PUSH 11/02/16 14:15 11/03/16 05:49 A/P Assessment and Plan 1. Intractable Nausea and vomit, probable related to his Metabolic disease, I agree with Doctor Lenny may continue with IV fluids Hydrate and try to handle off Intensive care unit, due to that his Anion Gap has Mild elevation will follow Improved his Anion Gap, continue Carafate, Protonix and Reglan. 2. Chronic Pancreatitis and Suprarenal Cyst followed by GI specialist as outpatient. 3. DM I at this time in Mild DKA will try to normalize his Anion Gap improved. continue controlled blood sugars will advance diet to ADA diet. 8. Tobacco dependence accepted Nicotine replacement strongly recommended to stop behavior. 5. Hypertriglyceridemia at this time on hold his medicines will follow 6. Severe non compliance will need more compromise with his management 7. Methadone management by Pain medicine specialist 8. Polysubstance abuse, positive Drug screen to Cocaine and Marijuana strongly recommended to stop behavior. DVT prophylaxis with Lovenox GI prophylaxis with PPIs Code Status full Code Discussed Condition With Patient and nurse, all questions answered to the best of my abilities. encourage ambulation if tolerating diet discharge Home later today. Discharge Planning Expected later today. Simone Bernabe MD Nov 03, 2016 08:44
[2016-11-03] MEDS: SUCRALFATE 1 GM/10 ML CUP PO SCH ×2 (08:51→12:02)
[2016-11-03] MEDS: busPIRone HCL 5 MG TAB PO SCH (08:51)
[2016-11-03] MEDS: REMOVE OLD PATCH T-DERMAL SCH (08:52)
[2016-11-03] MEDS: NICOTINE 21 MG/24 HR PATCH T-DERMAL SCH (08:52)
[2016-11-03] MEDS: DOCUSATE SODIUM 50 MG/SENNA 8.6 MG TAB PO SCH (08:52)
[2016-11-03] MEDS: ONDANSETRON HCL 4 MG/2 ML VIAL IVP PRN (08:58)
[2016-11-03] MEDS: SODIUM CHLORIDE 0.9% FLUSH 10 ML FLUSH IV FLUSH SCH (09:00)
[2016-11-03 12:00] VITALS: BP 138/87; PULSE 86; RESP 16; TEMP 99; O2SAT 100
[2016-11-03] MEDS: METHADONE HCL 10 MG TAB PO SCH (14:38)
--- NOTE | 2016-11-03 14:56 | HHI.DS ---
Discharge Summary Admission Date Nov 02, 2016 at 15:52 Discharge Date: Nov 03, 2016 Admitting Diagnosis (1) Non-compliance with treatment ICD Code: Z91.19 - Patient's noncompliance with other medical treatment and regimen Diagnosis: Principal (2) DKA (diabetic ketoacidoses) ICD Code: E13.10 - Other specified diabetes mellitus with ketoacidosis without coma Diagnosis: Principal (3) Intractable nausea and vomiting ICD Code: R11.2 - Nausea with vomiting, unspecified Diagnosis: Principal Procedures none Brief History - From Admission This is a pleasant 41 y/o male with Diabetes Mellitus Type I, who came to ER with his Mother and two Friends, with Nausea and vomit, not able to keep anything down for the last 3 to 4 days, he is not been compliant with his Medicines, not taking Methadone and his Insulin, associated with fatigue and lightheadedness. He denies any abdominal pain. He says he hasn't been taking his insulin for 2 weeks. He denies any fevers or chills. He denies any diarrhea. He says he does receive methadone 70 mg daily. given Methadone in ER by Doctor Lenny, at this time stable asking for food. as we know he has Chronic Pancreatitis at this time followed by GI specialist and Scheduled for EGD and Colonoscopy as outpatient but is been held due to that the patient is not taking his Insulin and is been Uncontrolled. also he has Hypertriglyceridemia. follow laboratory while he is here. CBC/BMP: 11/02/16 0711 11/02/16 0711 Significant Findings Laboratory Tests Test 11/01/16 11:13 11/01/16 11:35 11/01/16 11:46 11/01/16 14:59 White Blood Count 20.3 TH/MM3 (4.0-11.0) Neutrophils (%) (Auto) 89.6 % (16.0-70.0) Lymphocytes (%) (Auto) 6.6 % (9.0-44.0) Neutrophils # (Auto) 18.2 TH/MM3 (1.8-7.7) Blood Urea Nitrogen 24 MG/DL (7-18) Random Glucose 367 MG/DL (74-106) Aspartate Amino Transf (AST/SGOT) 8 U/L (15-37) Sodium Level 128 MEQ/L (136-145) Potassium Level 3.4 MEQ/L (3.5-5.1) Chloride Level 88 MEQ/L (98-107) Carbon Dioxide Level 20.7 MEQ/L (21.0-32.0) Anion Gap 19 MEQ/L (5-15) Estimat Glomerular Filtration Rate 80 ML/MIN (>89) B-Hydroxybutyrate 8.37 MMOL/L (0.00-0.39) Venous Blood pH 7.33 (7.360-7.400) Venous Blood Partial Pressure CO2 38 mmHg (44-48) Venous Blood Partial Pressure O2 29 mmHg (35-40) Venous Blood HCO3 20 mmol/L (22-26) Venous Blood Oxygen Saturation 49 % (70-76) Venous Blood Base Excess -5.4 mmol/L (-2-2) Urine Protein 30 mg/dL (NEG-TRACE) Urine Glucose (UA) 1000 mg/dL (NEG) Urine Ketones 150 mg/dL (NEG) Urine Cocaine Screen POS (NEG) Urine Cannabinoids Screen POS (NEG) Test 11/01/16 20:45 11/02/16 07:11 Random Glucose 251 MG/DL (74-106) 237 MG/DL (74-106) Calcium Level 8.4 MG/DL (8.5-10.1) 8.3 MG/DL (8.5-10.1) Sodium Level 131 MEQ/L (136-145) 132 MEQ/L (136-145) Carbon Dioxide Level 19.7 MEQ/L (21.0-32.0) 18.0 MEQ/L (21.0-32.0) Hemoglobin A1c 14.5 % (4.3-6.0) Triglycerides Level 189 MG/DL (42-150) Cholesterol Level 228 MG/DL (120-200) LDL Cholesterol 160 MG/DL (0-99) HDL Cholesterol 30.7 MG/DL (40.0-60.0) Thyroid Stimulating Hormone 3rd Gen 0.219 uIU/ML (0.358-3.740) White Blood Count 14.4 TH/MM3 (4.0-11.0) Neutrophils (%) (Auto) 75.4 % (16.0-70.0) Neutrophils # (Auto) 10.8 TH/MM3 (1.8-7.7) Monocytes # (Auto) 1.0 TH/MM3 (0-0.9) Albumin 3.1 GM/DL (3.4-5.0) Aspartate Amino Transf (AST/SGOT) 7 U/L (15-37) Alanine Aminotransferase (ALT/SGPT) 9 U/L (12-78) Imaging Last Impressions Chest X-Ray 11/01/16 0000 Signed Impressions: Service Date/Time: Tuesday, November 01, 2016 13:30 - CONCLUSION: No acute disease. Bryan Lafleur MD Abdomen/Pelvis CT 11/01/16 0000 Signed Impressions: Service Date/Time: Tuesday, November 01, 2016 14:08 - CONCLUSION: No acute intra-abdominal or pelvic process. Onur Patrick MD PE at Discharge GENERAL:Well appearing, no acute distress SKIN: Focused skin assessment warm and dry. HEAD: Atraumatic. Normocephalic. EYES: Pupils equal and round. No injection or drainage. ENT: Dry mucous membranes. NECK: Trachea midline. CARDIOVASCULAR: Regular rate and rhythm. No murmur appreciated. RESPIRATORY: Clear to auscultation. Breath sounds equal bilaterally. GASTROINTESTINAL: Abdomen soft, non-tender, nondistended. MUSCULOSKELETAL: No obvious deformities. NEUROLOGICAL: Awake and alert. No obvious cranial nerve deficits. Moving all extremities. PSYCHIATRIC: Appropriate mood and affect; insight and judgment normal. Hospital Course This is a pleasant 41 y/o male with Diabetes Mellitus Type I, who came to ER with his Mother and two Friends, with Nausea and vomit, not able to keep anything down for the last 3 to 4 days, he is not been compliant with his Medicines, not taking Methadone and his Insulin, associated with fatigue and lightheadedness. He denies any abdominal pain. He says he hasn't been taking his insulin for 2 weeks. He denies any fevers or chills. He denies any diarrhea. He says he does receive methadone 70 mg daily. given Methadone in ER by Doctor Galvez, at this time stable asking for food. as we know he has Chronic Pancreatitis at this time followed by GI specialist and Scheduled for EGD and Colonoscopy as outpatient but is been held due to that the patient is not taking his Insulin and is been Uncontrolled. also he has Hypertriglyceridemia. follow laboratory while he is here. 11/02: Stable seen in his bedroom, continue with nausea, 11/03: Patient seen in his bedroom, improving condition, discussed with him for a long time more than 25 minutes only spent talking with the patient he is completely non compliant with his diabetes, also he is abusing substances, and he states his relatives do not know about that, of course won't disclose this information to his relatives, he is supposed to be on Methadone by his Pain medicine specialist, he states will be more compliant with his Diabetes, also will try to avoid Tobacco, marijuana and Cocaine. No nausea, vomit or diarrhea. Assessment and Plan 1. Intractable Nausea and vomit, probable related to his Metabolic disease, I agree with Doctor et may continue with IV fluids Hydrate and try to handle off Intensive care unit, due to that his Anion Gap has Mild elevation will follow Improved his Anion Gap, continue Carafate, Protonix and Reglan. 2. Chronic Pancreatitis and Suprarenal Cyst followed by GI specialist as outpatient. 3. DM I at this time in Mild DKA will try to normalize his Anion Gap improved. continue controlled blood sugars will advance diet to ADA diet. 8. Tobacco dependence accepted Nicotine replacement strongly recommended to stop behavior. 5. Hypertriglyceridemia at this time on hold his medicines will follow 6. Severe non compliance will need more compromise with his management 7. Methadone management by Pain medicine specialist 8. Polysubstance abuse, positive Drug screen to Cocaine and Marijuana strongly recommended to stop behavior. DVT prophylaxis with Lovenox GI prophylaxis with PPIs Code Status full Code Discussed Condition With Patient and nurse, all questions answered to the best of my abilities. encourage ambulation if tolerating diet discharge Home later today. Discharge Planning Discharge home now Pt Condition on Discharge: Good Discharge Disposition: Discharge Home Discharge Time: <= 30 minutes Discharge Instructions DIET: Follow Instructions for: Heart Healthy Diet, Diabetic Diet Activities you can perform: Regular-No Restrictions Simone Bernabe MD Nov 03, 2016 14:55
== END 2016-11-03 16:24 | disposition home or self-care (01) | DRG 638 ==
LOC: NEPC 10:51 → NEDA 16:13 → NEPGCP 17:45 → OBSVTOIN 11-02 15:52 → N06B 11-02 21:49
PROVIDERS: ADMIT Internal Medicine; ATTEND Internal Medicine
DX: E10.10 Type 1 diabetes mellitus with ketoacidosis without coma (principal); K86.1 Other chronic pancreatitis; R11.2 Nausea with vomiting, unspecified; F11.90 Opioid use, unspecified, uncomplicated; E78.1 Pure hyperglyceridemia; Z91.19 Patient's noncompliance with other medical treatment and regimen; F17.200 Nicotine dependence, unspecified, uncomplicated; E86.0 Dehydration; F19.10 Other psychoactive substance abuse, uncomplicated; Z79.4 Long term (current) use of insulin
CPT/HCPCS: 71010; 74177; 80048; 80053; 80061; 80307; 81001; 82010; 82805; 82948; 83036; 83605; 83690; 84443; 85025; 87040; 96361; 96365; 96366; 96372; 96375; C9113; G0378; J1815; J2405; J2765; J3480; J7030; Q9967